=== PATIENT | female | born 1995 | race Caucasian/White ===

== ENCOUNTER 2018-04-29 16:12 | Day surgery (SDC) | payer OTHER ==
[~2018-04-29] VITALS: Ht 172.7 cm; Wt 70.5 kg
[2018-04-29] MEDS ORDERED: KYLEENA1 EACH IY (16:19)
[2018-04-29] MEDS ORDERED: LEXAPRO20 MG PO (16:19)
[2018-04-29 16:44] LABS: COLLECTION METHOD CLEAN CATCH
[2018-04-29 17:03] LABS: HEMOGLOBIN 14.1 g/dl (12.0-15.0); MEAN CELL VOLUME 90 fl (80.0-95.0); MEAN CORPUSCULAR HEMOGLOBIN 31 pg (26.0-32.0); MEAN CORPUSCULAR HGB CONC 34 g/dl (33.0-37.0); MEAN PLATELET VOLUME 11.7 fl (7.4-10.4); PLATELET COUNT 203 K/mm3 (130-400); RED BLOOD COUNT 4.55 M/mm3 (4.10-5.30); REDCELL DISTRIBUTION WIDTH-CV 12.4 % (11.5-14.5)
[2018-04-29 17:13] LABS: ALBUMIN 4.5 gm/dL (3.5-5.0); BILIRUBIN,TOTAL 1.1 mg/dL (0.0-1.0); CALCIUM 9.5 mg/dL (8.4-10.2); CREATININE, serum 0.72 mg/dL (0.52-1.25); POTASSIUM 3.8 mmol/L (3.4-5.0); TOTAL PROTEIN 7.6 gm/dL (6.4-8.2)
[2018-04-29 17:14] LABS: MUCOUS Present /lpf; PH 7 (5-8); SQUAMOUS EPITHELIAL 0-2 /hpf; URINE APPEARANCE Clear; URINE BACTERIA None Seen /hpf; URINE BILIRUBIN Negative (NEGATIVE); URINE BLOOD 2+ (NEGATIVE); URINE COLOR Amber; URINE GLUCOSE Negative (NEGATIVE); URINE KETONE Negative (NEGATIVE); URINE LEUKOCYTE ESTERASE Negative (NEGATIVE); URINE NITRATE Negative (NEGATIVE); URINE PROTEIN(semi-quant) 1+ (NEGATIVE); URINE RBC 0-2 /hpf; URINE UROBILINOGEN >=4.0 mg/dL (NEGATIVE)
[2018-04-29 17:20] LABS: BAND 6 % (0-10); LYMPHOCYTE 4 % (20.0-51.0); NEUTROPHILS 88 % (42.0-75.2)
[2018-04-29 17:21] LABS: PLATELET ESTIMATE NORMAL (NORMAL)
[2018-04-29] MEDS ORDERED: PERCOCET 325 MG1 TA2 PO (20:42)
[2018-04-29] MEDS ORDERED: AMOXICILLIN 8751 TAB PO (20:42)
[2018-04-29] MEDS ORDERED: COLACE 100100 MG/CAP PO (20:43)
[2018-04-29] MEDS ORDERED: MOTRIN 600600 MG/TAB PO (20:44)
[2018-04-29 21:15] VITALS: BP 120/69; PULSE 98; TEMP 99.9
--- NOTE | 2018-04-29 21:15 | NUR ---
Received patient per bed from PACU. Is alert, drowsy, boyfriend at bedside. Has IVF infusing to right AC without redness or swelling. Has Temp 99.9 orally. Reports feeling nauseated, ice chips given. Has 3 Lap sites to abdomen, 2 are dry, umbilicus has scant drainage. Denies pain at this time. Connected to dynamap for post op VS. Oriented to call light and bed controls.
[2018-04-29 21:30] VITALS: BP 119/73; PULSE 100
[2018-04-29 21:45] VITALS: BP 125/70; PULSE 99
[2018-04-29 22:00] VITALS: BP 119/76; PULSE 99
--- NOTE | 2018-04-29 22:00 | NUR ---
Patient less nauseated, tries jello at this time. No complaints of pain at this time. Parents at bedside.
[2018-04-29 22:30] VITALS: BP 123/67; PULSE 95
--- NOTE | 2018-04-29 22:30 | NUR ---
Patient takes more jello, no further nausea at this time.
[2018-04-29 23:00] VITALS: BP 117/70; PULSE 90
[2018-04-30 00:17] VITALS: BP 103/68; PULSE 94; TEMP 98.6
[2018-04-30 00:20] VITALS: BP 103/68; PULSE 94; TEMP 98.6
--- NOTE | 2018-04-30 00:20 | NUR ---
Patient up to void, has steady gait and able to void yellow urine without problem. 2 Lap sites to abdomen D/I. Placed bandaid over umbilical site due to minimal leakage. Patient brushes her teeth and returns to bed. VSS. IVF infusing to right AC without redness or swelling. Temp 98.6. Reports pain meds helping and is ready for sleep. Mother at bedside.
[2018-04-30 01:02] VITALS: BP 101/46; PULSE 90
[2018-04-30 04:21] VITALS: BP 96/57; PULSE 80; TEMP 97.9
--- NOTE | 2018-04-30 06:00 | NUR ---
Patient has rested well. Mother at bedside.
[2018-04-30 07:13] VITALS: BP 106/46; PULSE 75; TEMP 98.2
--- NOTE | 2018-04-30 07:31 | NUR ---
Report received from MARIPOSA Pritchett. IV fluids infusing to right AC. No drainage, redness, or swelling noted. Patient appeared to be sleeping. Mother at bedside. Will monitor.
--- NOTE | 2018-04-30 10:08 | NUR ---
Initial visit; Joyce and her mom thanked for looking in on her and offering God's blessings and to keep Joyce in [employer] prayers.
--- NOTE | 2018-04-30 11:35 | NUR ---
Discharge instructions completed with patient and her mother. All questions answered at this time. INT discontinued. Patient assisted to personal vehicle with wheelchair and surgical staff. Mother and boyfriend assisting her home. Patient discharged at 1115.
== END 2018-04-30 11:15 | disposition home or self-care (01) ==
LOC: COL.ER 16:12 → SDCO 18:39 → SURG 18:39 → SDCO 04-30 11:15
PROVIDERS: Emergency Medicine
DX: K35.80 Unspecified acute appendicitis (principal); F32.9 Major depressive disorder, single episode, unspecified; F41.9 Anxiety disorder, unspecified
CPT/HCPCS: OP; J1100; J1885; J2060; J2405; J2543; J2550; J2704; J3010; J7030; Q9967

== ENCOUNTER 2018-05-02 12:38 | Emergency (ER) | payer OTHER ==
[~2018-05-02] VITALS: Ht 172.7 cm; Wt 70.5 kg
[~2018-05-02 12:38] MED LIST: AMOXICILLIN 8751 TAB PO; COLACE 100100 MG/CAP PO; KYLEENA1 EACH IY; LEXAPRO20 MG PO; MOTRIN 600600 MG/TAB PO; PERCOCET 325 MG1 TA2 PO
[2018-05-02 15:18] LABS: BASO % 0.7 % (0.0-2.0); EOS # 0.1 (0.0-0.7); EOS % 2.1 % (0-4.0); GRAN # 2.6 (1.4-6.5); GRAN % 60.3 % (42.2-75.2); HEMATOCRIT 37.5 % (35.0-45.0); HEMOGLOBIN 12.7 g/dl (12.0-15.0); LYMPH # 1.1 (1.2-3.4); LYMPH % 24.5 % (20.0-51.0); MEAN CELL VOLUME 91 fl (80.0-95.0); MEAN CORPUSCULAR HEMOGLOBIN 31 pg (26.0-32.0); MEAN CORPUSCULAR HGB CONC 34 g/dl (33.0-37.0); MEAN PLATELET VOLUME 11.7 fl (7.4-10.4); MONO # 0.5 (0.1-0.6); MONO % 11.5 % (1.7-9.3); PLATELET COUNT 183 K/mm3 (130-400); RED BLOOD COUNT 4.13 M/mm3 (4.10-5.30); REDCELL DISTRIBUTION WIDTH-CV 12.4 % (11.5-14.5)
[2018-05-02 15:28] LABS: ALBUMIN 3.7 gm/dL (3.5-5.0); BILIRUBIN,TOTAL 0.5 mg/dL (0.0-1.0); CALCIUM 8.9 mg/dL (8.4-10.2); CREATININE, serum 0.52 mg/dL (0.52-1.25); POTASSIUM 3.8 mmol/L (3.4-5.0)
[2018-05-02 15:39] LABS: C-REACTIVE PROTEIN 20.6 mg/dL (0.0-0.9)
[2018-05-02 15:48] LABS: COLLECTION METHOD CLEAN CATCH
[2018-05-02 15:54] LABS: MUCOUS Present /lpf; PH 7 (5-8); URINE APPEARANCE Clear; URINE BACTERIA Rare /hpf; URINE BILIRUBIN Negative (NEGATIVE); URINE BLOOD Negative (NEGATIVE); URINE COLOR Yellow; URINE GLUCOSE Negative (NEGATIVE); URINE KETONE Negative (NEGATIVE); URINE LEUKOCYTE ESTERASE Negative (NEGATIVE); URINE NITRATE Negative (NEGATIVE); URINE PROTEIN(semi-quant) Negative (NEGATIVE); URINE RBC 0-2 /hpf; URINE UROBILINOGEN >=4.0 mg/dL (NEGATIVE)
[2018-05-02] MEDS ORDERED: LIDODERM 5% PATC1 EA TP (16:50)
[2018-05-02] MEDS ORDERED: PERCOCET 325 MG1 TA3 PO (16:50)
[2018-05-02 17:00] VITALS: BP 136/83; PULSE 73; TEMP 98.3
== END 2018-05-02 17:00 | disposition home or self-care (01) ==
LOC: COL.ER 12:38
PROVIDERS: Physician Assistant
DX: R10.10 Upper abdominal pain, unspecified (principal); M54.6 Pain in thoracic spine; Z90.89 Acquired absence of other organs
CPT/HCPCS: J1170; J1885; J2405; J7030

== ENCOUNTER 2020-01-25 12:55 | Emergency (ER) | payer OTHER ==
[~2020-01-25] VITALS: Ht 172.7 cm; Wt 70.5 kg
[~2020-01-25 12:55] MED LIST changes: +LIDODERM 5% PATC1 EA TP; +PERCOCET 325 MG1 TA3 PO
[2020-01-25 13:01] VITALS: BP 133/82; TEMP 97.6
[2020-01-25] MEDS ORDERED: XARELTO10 MG PO (14:59)
[2020-01-25 15:07] VITALS: PULSE 81
== END 2020-01-25 15:10 | disposition home or self-care (01) ==
LOC: COL.ER 12:55
DX: M79.662 Pain in left lower leg (principal); Z90.89 Acquired absence of other organs; Z79.2 Long term (current) use of antibiotics; Z79.1 Long term (current) use of non-steroidal anti-inflammatories (NSAID)